=== PATIENT | male | born 1975 | race Caucasian/White ===

== ENCOUNTER 2016-07-22 14:25 | Emergency (ER) | payer SELFPAY ==
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
== END 2016-07-22 14:52 | disposition disaster alternative care site (69) ==
LOC: GMED 14:25
DX: K05.10 Chronic gingivitis, plaque induced (principal); K02.9 Dental caries, unspecified; F17.210 Nicotine dependence, cigarettes, uncomplicated; Z88.1 Allergy status to other antibiotic agents; Z98.890 Other specified postprocedural states

== ENCOUNTER 2017-01-04 18:03 | Emergency (ER) | payer SELFPAY ==
--- NOTE | ~2017-01-04 | ER ---
PATIENT'S NAME: ANGY CONKLIN [facility] AGE: 41 Y [address] ROOM: [place] [address] LOCATION: [facility] ADMIT DATE: 01/04/2017 ER/Outpatient Report DISCHARGE DATE: 01/04/2017 FAMILY PHYSICIAN: Physician, Unknown ATTENDING PHYSICIAN: Huan Pugh Time of Arrival: 1810 hours. Time of Evaluation: 1815 hours. CHIEF COMPLAINT: Ear pain. HISTORY OF PRESENT ILLNESS: The patient states approximately 3 days ago, he began having an earache on the right side. It is now including the left ear. He has got a headache behind the left eye. Denies having fever or chills. Has had some nasal congestion. ALLERGIES: BACTRIM. CURRENT MEDICATIONS: None. PAST MEDICAL HISTORY: Benign. PAST SURGICAL HISTORY: Hernia repair. SOCIAL HISTORY: Smokes a pack per day. Smokes marijuana on a daily basis. He denies the use of alcohol. REVIEW OF SYSTEMS: Negative other than those mentioned in the HPI. PHYSICAL EXAMINATION: VITAL SIGNS: He weighed 86 kg, blood pressure is 104/64, pulse is 68, respirations 20, temperature of 97, O2 saturation is 97% on room air. GENERAL: He is awake, alert, and oriented x4. SKIN: [place], warm, and dry. RESPIRATIONS: Even and nonlabored. HEENT: Right external canal is very tender to move. He does have a lot of creamy whitish yellow discharge in the ear, difficult to visualize the tympanic membrane. Left ear, difficult to see the tympanic membrane due to PATIENT'S NAME: ANGY CONKLIN [facility] AGE: 41 Y [address] ROOM: [place] [address] LOCATION: [facility] ADMIT DATE: 01/04/2017 ER/Outpatient Report DISCHARGE DATE: 01/04/2017 FAMILY PHYSICIAN: Physician, Unknown ATTENDING PHYSICIAN: Huan Pugh. Nasal is red and boggy. Oropharynx is red posteriorly. No exudate noted. NECK: Supple. No lymphadenopathy. LUNGS: Lung sounds are coarse in the left lower lobe. HEART: Regular rate and rhythm. IMPRESSION: 1. Otitis externa. 2. Upper respiratory infection. PLAN: Home, rest, fluids. Tylenol or ibuprofen as needed for discomfort. Cortisporin ear drops and amoxicillin prescriptions were written. If symptoms persist or worsen, he is to follow up with his primary provider. He verbalized understanding. BAILEY DOUGLAS APRN FOR MD RADHA [place]REL[place]/josé /[id number] d: 01/04/172106 t: 01/10/17 1436, OUTPATIENT REPORT
== END 2017-01-04 18:28 | disposition disaster alternative care site (69) ==
LOC: GMED 18:03
DX: H60.93 Unspecified otitis externa, bilateral (principal); J06.9 Acute upper respiratory infection, unspecified; F12.10 Cannabis abuse, uncomplicated; F17.210 Nicotine dependence, cigarettes, uncomplicated; Z88.1 Allergy status to other antibiotic agents; Z98.890 Other specified postprocedural states